=== PATIENT | male | born 1940 | race Caucasian/White ===

== ENCOUNTER 2016-11-30 20:54 | Inpatient (IN) | payer BC ==
--- NOTE | ~2016-11-30 | DS ---
Discharge Summary [facility] [address] [place]. [address] NAME: REGGIE PINEDA : 39 STATUS : DIS IN PAT#: [id number] AGE: 76 ADM/REG DATE : 11/30/16 MR#: [id number] REPORT SERV DATE: 12/04/16 DICTATED BY: ENRICO BANEGAS DATE: 12/03/16 REPORT STATUS : Draft TRANSCRIBED BY: MODBrenden DATE: 12/03/16 ADMISSION DATE: 11/30/2016 DISCHARGE DATE: 12/03/2016 CONDITION ON DISCHARGE: Stable. DISPOSITION: Discharged to home. Advise on discharge is for the patient to follow up with PCP in the next one to two weeks and with his assistant executive housekeeper next as scheduled. His assistant executive housekeeper is Dr. Lujan. DIAGNOSES ON DISCHARGE: 1. Left second toe osteomyelitis, status post amputation of the left second toe. 2. Right second toe osteomyelitis - status post amputation of the right second toe also. 3. The patient does not require antibiotics beyond 10 days at this time, and hence, he will be sent home on p.o. Augmentin 875 mg p.o. b.i.d. for this. Other diagnoses that are chronic and stable in this patient include: 1. Diabetes mellitus which is chronic but well controlled because his hemoglobin A1c came back at 6.7 reflecting well-controlled diabetes mellitus with his current insulin regimen. 2. History of multiple diabetic foot ulcers and osteomyelitis of the toes secondary to partly diabetes and also partly due to hammertoe deformity that the patient has in both feet. 3. Benign prostatic hypertrophy with urinary retention which is not a problem at this time. 4. Chronic atrial fibrillation with ventricular response, rate controlled. For this, the patient has been started on Eliquis 5 mg p.o. b.i.d., and a 30-day supply of Eliquis 5 mg p.o. b.i.d. has been given to the patient. 5. Rheumatoid arthritis which is stable and the patient continues to be on Plaquenil, methotrexate, and prednisone. 6. Neuropathy in both feet which are stable at this time. 7. Obstructive sleep apnea and obesity/hypoventilation syndrome for which the patient is on CPAP. 8. History of left chronic deep venous thrombosis for which the patient now is on Eliquis. 9. Chronic kidney disease, stage 3, with baseline creatinine around 1.5 to 1.7 which is stable. 10.History of peripheral arterial disease which is stable at this time. BRIEF HOSPITAL COURSE: The patient is a very pleasant 76-year-old white male patient who was admitted essentially with osteomyelitis of the left second toe only. There was really minimal cellulitis upon admission. However, he was admitted for IV antibiotics and scheduled for amputation of the left second toe and also the right second toe for chronic osteomyelitis. He was begun on IV vancomycin and IV Zosyn. Wound culture came back with minimal growth of Staphylococcus, otherwise, no other growth. Dr. Lujan, his assistant executive housekeeper, performed left second toe amputation and also right second toe amputation. Discharge Summary [address] [address] NAME: REGGIE PINEDA : 39 STATUS : DIS IN PAT#: [id number] AGE: 76 ADM/REG DATE : 11/30/16 MR#: [id number] REPORT SERV DATE: 12/04/16 DICTATED BY: ENRICO BANEGAS DATE: 12/03/16 REPORT STATUS : Draft TRANSCRIBED BY: TU DATE: 12/03/16 DISCHARGE MEDICATIONS: The patient was continued on all of his home medications. He improved very well after this and did extremely well postoperatively. Hence, he is being sent home on 12/03/2016 with the following two new medications: 1. Augmentin 875 mg p.o. b.i.d. for 10 more days. 2. Eliquis 5 mg p.o. b.i.d., a 30-day supply has been given to the patient. The patient will be continued on anticoagulation per primary care physician after this. The patient states that he already has enough insulin and other medications at home and does not require any more prescriptions for this. Hence, his home medications will be resumed, and he has been advised to continue taking his home medications which include the followin. Demodex 100 mg once a day. 2. Potassium chloride 10 mEq p.o. b.i.d. 3. Metaglip 5/500 one p.o. b.i.d. 4. Neurontin 900 mg p.o. t.i.d. 5. Methotrexate 15 mg p.o. weekly. 6. Lotensin 40 mg once a day. 7. Amlodipine 5 mg once a day. 8. Prednisone 5 mg once a day. 9. Hydrochlorothiazide 25 mg once a day. 10.Plaquenil 200 mg p.o. once a day. 11.Folic acid 1 mg once a day. 12.Aspirin 81 mg once a day. 13.Toujeo or insulin glargine 20 units at bedtime. 14.Flonase nasal spray p.r.n. 15.Mucinex 1200 mg p.o. every morning and 600 mg p.o. twice a day p.r.n. 16.Trulicity 0.75 mg subcutaneously once a week. LABORATORY AND DIAGNOSTIC DATA: His most recent labs upon discharge are as follows: On 12/03/2016, the patient had a CBC count that shows a WBC of 8.8, hemoglobin 11, hematocrit 32, and platelet count of 173. His electrolyte profile shows sodium of 142, potassium of 4.9, BUN is 21, and creatinine is 1.0. His hemoglobin A1c has come back at 6.4, which shows well-controlled diabetes mellitus. His wound culture has come back with extremely sparse growth of MRSA at this time; but however, as the patient had minimal signs of cellulitis, I do not think this requires any treatment beyond the Augmentin that the patient has been prescribed. The patient also had a 2D echocardiogram done at this time, which shows a left ventricular ejection fraction of 50% and mild diastolic dysfunction. Other significant radiological studies that the patient had during this admission is an MRI of the left foot that shows that the patient has osteomyelitis of the second proximal phalanx of the left side and also essentially tenosynovitis of the peroneus longus tendon. Other than this, no other pockets of infection. This has also been taken care of as the patient has already undergone a left second toe amputation now. Hence, he is being sent home in stable condition and I have spent about 40 minutes in coordinating discharge care of this patient including [id number] encounter and summarizing this discharge. Discharge Summary [address] [place]. [address] NAME: REGGIE PINEDA : 39 STATUS : DIS IN PAT#: [id number] AGE: 76 ADM/REG DATE : 11/30/16 MR#: [id number] REPORT SERV DATE: 12/04/16 DICTATED BY: ENRICO BANEGAS DATE: 12/03/16 REPORT STATUS : Draft TRANSCRIBED BY: MODL DATE: 12/03/16 MIYA/TU Enrico Banegas M.D. / [id number] CC: Ross Greene M.D.
--- NOTE | ~2016-11-30 | OP ---
Record Of Operation [facility] [address] [place]. [address] NAME: REGGIE PINEDA : 39 STATUS : ADM IN PAT#: [id number] AGE: 76 ADM/REG DATE : 11/30/16 MR#: [id number] REPORT SERV DATE: 12/02/16 DICTATED BY: DERICK LITTLE DATE: 12/02/16 REPORT STATUS : Draft TRANSCRIBED BY: MODL DATE: 12/02/16 DATE OF PROCEDURE: 12/02/2016 SURGEON: Derick Little DPM PRACTICE PROFESSIONAL: None. PREOPERATIVE DIAGNOSES: 1. Diabetic foot ulcer, left foot. 2. Osteomyelitis and hammertoe deformity, bilateral second toe. POSTOPERATIVE DIAGNOSES: 1. Diabetic foot ulcer, left foot. 2. Osteomyelitis and hammertoe deformity, bilateral second toe. PROCEDURE: 1. Right second toe amputation. 2. Left second toe amputation. 3. Left fourth wound excisional debridement under 20 square centimeters. ANESTHESIA: MAC. HEMOSTASIS: None. ESTIMATED BLOOD LOSS: 10 mL. MATERIALS UTILIZED: 3-0 Prolene. INJECTABLES: None. SPECIMENS: Bone and soft tissues sent off for microbiology as well as a histopathology. COMPLICATION: None. CONDITION: Stable. JUSTIFICATION FOR PROCEDURE: The patient is a very pleasant 76-year-old male well known to my practice with multiple comorbidities and a significant history of diabetic foot ulcerations and complications. The patient presented to my office with an ulceration to his left second toe with the bone sticking out of the wound. The patient also had an ulcer to his left fourth toe and they understand all the risks of the condition. The patient is fully neuropathic and constantly bumps his feet into objects, not knowing when he has caused the wound or ulceration. The patient's asks if we can also amputate and address the right second toe when we are in surgery due to multiple ulcerations to that digit due to his significant hammertoe deformity to that digit. The patient understands all the risks, benefits, alternatives, and the postoperative course in detail. The patient understands Record Of Operation [place] [id number] [place]. [address] NAME: REGGIE PINEDA : 39 STATUS : ADM IN PAT#: [id number] AGE: 76 ADM/REG DATE : 11/30/16 MR#: [id number] REPORT SERV DATE: 12/02/16 DICTATED BY: BRIGIDSEANDERICK DATE: 12/02/16 REPORT STATUS : Draft TRANSCRIBED BY: TU DATE: 12/02/16 that due to his multiple comorbidities and peripheral vascular disease, that he is at higher risk for wound healing. The patient and his fully understand this, and they would like to move on forward with surgery. The patient understands as in all surgeries, there are no guarantees, none of which have been given, stated, or implied. DESCRIPTION OF PROCEDURE AND FINDINGS: The patient was wheeled into the operating room and placed on the operating room table in the supine position, at which time anesthesia was administered by Anesthesia Services, and bilateral lower extremities were prepped, scrubbed, and draped in the usual sterile fashion. At this time, attention was directed to the left foot where a skin marker was utilized to plan out a racket-type incision about the second toe. Next, a 15-blade was utilized to make an incision down to bone and second toe was disarticulated to metatarsophalangeal joint. This is passed off to the back table. The surgical manager at this time utilizes a rongeur to remove some bone, to be sent off for microbiology and the remaining second toe is sent off for histopathology. Next, this wound is copiously irrigated. It is to be noted there was no tracking distally. The wound appeared healthy with healthy bleeding. The remaining bone at the second metatarsal is noted to be hard and healthy. Next, with the wound irrigated, 3-0 Prolene was utilized to reapproximate the skin in a horizontal and simple suture fashion. There was no tension. At this time, attention was directed to the left fourth toe where predebridement measurements were 0.8 x 0.6. A 15-blade was utilized to perform excisional debridement down to the subcutaneous layer removing all devitalized and nonviable tissue. It should be noted that there was no bone visible at this time, the base was nice and healthy granular subcutaneous tissue. Next, postdebridement measures were 1 cm x 0.8 cm. The wound was copiously irrigated and at this time Adaptic with soaked in Betadine was applied over both incision sites followed by copious Kerlix and gauze to cover the wounds, and an FELTON bandage with very light compression. At this time, attention was directed to the right second toe, where a racket-type incision was made about the right second toe and utilized a 15-blade, and incision was made down to bone. Next, the right second toe was disarticulated at the metatarsophalangeal joint, passed off the back table to be sent off for histopathology. The wound was copiously irrigated and 3-0 Prolene was utilized to reapproximate the cutaneous layer in a simple suture in a horizontal mattress fashion. There is noted to be no tension at this site. Next, Betadine-soaked Adaptic followed by gauze and Kerlix were utilized to dress the right foot and Felton bandage like compression. The patient tolerated the procedure and anesthesia well, left the operating room with vital signs stable and neurovascular status intact to bilateral lower extremities. The patient will be readmitted to the floor under the surface of Dr. Morin. The patient has been instructed to keep the dressing clean, dry, and intact and remain weightbearing as tolerated in postoperative shoes, but has also been instructed to keep his activities minimal with elevation of bilateral lower extremities. The patient will follow up with me in 3 to 5 days unless there are any signs of infection, which they have been instructed on. They should call me immediately or report to emergency room if any of these signs or symptoms should Record Of Operation [address] [address] NAME: REGGIE PINEDA : 38 STATUS : ADM IN [facility]#: [id number] AGE: 76 ADM/REG DATE : 11/30/16 MR#: [id number] REPORT SERV DATE: 12/02/16 DICTATED BY: DERICK LITTLE DATE: 12/02/16 REPORT STATUS : Draft TRANSCRIBED BY: TU DATE: 12/02/16 occur. KATJA/TU Derick Little DPM / [id number] CC: Ross Greene M.D.
--- NOTE | ~2016-11-30 | HP ---
History And Physical [place] [address] [facility] [place]. [address] NAME: REGGIE PINEDA : 39 STATUS : ADM IN [facility]#: [id number] AGE: 76 ADM/REG DATE : 11/30/16 MR#: [id number] REPORT SERV DATE: 12/01/16 DICTATED BY: EUGENIA CONTI DATE: 11/30/16 REPORT STATUS : Draft TRANSCRIBED BY: MODL DATE: 11/30/16 DATE OF ADMISSION: 11/30/2016 CHIEF COMPLAINT: A 76-year-old male presenting with progressive left foot toe ulcer. HISTORY OF PRESENT ILLNESS: The patient's history was obtained through careful interview with the patient, , and daughter coupled with [facility] of [facility] and [facility] medical records. The patient about three weeks ago began to develop an ulcer over the second toe on his left foot. It has progressed over the last several weeks despite attempts to care for it, and now unfortunately it has begun to expose an ulcer all the way to the bone. He has no pain associated with it because of severe neuropathy and has no sensation at all in his feet. There is also a complaint about deformity of his right second toe with a hammertoe deformity despite previous surgical correction and now increasing superficial ulcer with recurrent unintentional injuries to it. He does have chronic rheumatoid arthritis and at times it is poorly controlled with stiffening and discomfort in his hands and wrists mostly, about a 6 out of 10 severity, that comes and goes, particularly bad in the morning. No fevers or chills. The patient claims his diabetes is under excellent control with most blood sugars less than 200. No shortness of breath. No chest pain. No cough. No back pain. REVIEW OF SYSTEMS: Otherwise, a 14-point review of systems was obtained and was negative. PAST MEDICAL HISTORY: 1. Diabetes, hemoglobin A1c of 7.5, 08/2016. 2. Leg cellulitis, diabetic foot ulcer infections, and osteomyelitis of lower extremities. 3. Pseudomonas and Stenotrophomonas. 4. Benign prostatic hypertrophy with urinary retention. 5. Enterococcus. 6. Atrial fibrillation/atrial flutter but has never seen a pastrycook. 7. Rheumatoid arthritis, on chronic Plaquenil, steroids, methotrexate. 8. Neuropathy. 9. Obstructive sleep apnea, on CPAP. 10.Left chronic DVT. 11.Nephrolithiasis. 12.Pneumonia. 13.Peripheral arterial disease with surgery of the legs. 14.Chronic kidney disease, stage III. Baseline creatinine of 1.5 to 1.7. 15.Stroke by MRI. History And Physical [address] [address] NAME: REGGIE PINEDA : 39 STATUS : ADM IN PAT#: [id number] AGE: 76 ADM/REG DATE : 11/30/16 MR#: [id number] REPORT SERV DATE: 12/01/16 DICTATED BY: EUGENIA CONTI DATE: 11/30/16 REPORT STATUS : Draft TRANSCRIBED BY: TU DATE: 11/30/16 PAST SURGICAL HISTORY: 1. Partial foot and toe amputations. 2. Some kind of bypass surgery of the gut in 1978 with reversal in 1980. 3. Right shoulder melanoma removal, 2004. 4. Bilateral knee surgeries. 5. Bilateral shoulder surgeries. 6. Left hip replacement. 7. Adhesiolysis. 8. Cholecystectomy. 9. An arthrectomy of the leg artery by Dr. Foster. ALLERGIES: NO KNOWN DRUG ALLERGIES. SOCIAL HISTORY: Quit smoking more than 30 years ago. He is . Disabled. 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 At one point, he had a collection of over a 1000 knives but has had to sell many of them and now has about 200 or more. He has a supportive son and daughter who live locally. Drinks occasional alcohol. FAMILY HISTORY: Father with stroke. Mother with pancreatic cancer. Had a daughter pass away from multiple sclerosis. A strong family history of diabetes. CURRENT MEDICATIONS: Include Norvasc 5 mg p.o. daily, aspirin 325 mg p.o. daily, Lotensin 40 mg p.o. daily, Trulicity 0.75 mg subcutaneous on , Flonase, folic acid, Neurontin 900 mg p.o. t.i.d., glipizide/metformin 5/500 p.o. b.i.d., Mucinex p.r.n., hydrochlorothiazide 25 mg p.o. daily, Plaquenil 200 mg p.o. daily, Toujeo 20 mg p.o. daily, methotrexate on Sundays, potassium 10 mEq p.o. b.i.d., prednisone 5 mg p.o. daily, and Demadex 100 mg p.o. daily. PHYSICAL EXAMINATION: VITAL SIGNS: Temperature 97.9, pulse 60, blood pressure 136/62, respiratory rate 16, and O2 saturation 98% on room air. GENERAL: A pleasant cooperative male. No evidence of distress at this time. HEENT: Pupils equal, round, and reactive to light. No conjunctival pallor. No scleral icterus. Nares are patent. Oropharynx is clear of obstruction. Dry mucous membranes. NECK: Trachea midline. No thyromegaly. LYMPH: No cervical lymphadenopathy. No supraclavicular lymphadenopathy. No inguinal lymphadenopathy. RESPIRATORY: Clear to auscultation at bases. No wheezes, rales, or rhonchi. Normal respiratory effort. CARDIOVASCULAR: Regular rate and rhythm. No murmurs, rubs, or gallops. No current extremity edema is appreciated. ABDOMEN: Soft, nontender, and nondistended. Normal bowel sounds auscultated throughout. No organomegaly. DERMATOLOGICAL: Warm and dry extremities. No pallor. No cyanosis. The patient has ulceration and purulent drainage from his left second toe. History And Physical [address] [address] NAME: REGGIE PINEDA : 38 STATUS : ADM IN [facility]#: [id number] AGE: 76 ADM/REG DATE : 11/30/16 MR#: [id number] REPORT SERV DATE: 12/01/16 DICTATED BY: EUGENIA CONTI DATE: 11/30/16 REPORT STATUS : Draft TRANSCRIBED BY: TU DATE: 11/30/16 PSYCHIATRIC: Normal affect. Good mood. Alert and oriented x3. LABORATORY DATA: White blood cell count 7.8, hemoglobin 12, hematocrit 35, MCV 103.6, platelets 202, sodium 140, potassium 5.7, chloride 108, bicarb 25, BUN 46, creatinine 0.47, and glucose 131. Liver enzymes within normal limits. ASSESSMENT AND PLAN: 1. Left second toe osteomyelitis and infected diabetic ulcer. I obtained a wound culture at the bedside. We will place on IV vancomycin, IV Zosyn. Noted history of Pseudomonas and Stenotrophomonas. Check an MRI to define extent. Consult Dr. Lujan, tin plater. 2. Diabetes, hemoglobin A1c of 7.5, 02/2017. Placed on home medications and sliding scale insulin. 3. Rheumatoid arthritis, on methotrexate, Plaquenil, and chronic steroids. 4. Obstructive sleep apnea, on CPAP. 5. Chronic atrial fibrillation. Check telemetry. Patient noncompliant with anticoagulation. 6. Chronic kidney disease, stage III. KPL/MODL Eugenia Conti M.D. / [id number] CC: Ross Greene M.D.
[~2016-11-30 20:54] MED LIST: ADVAIR250 INH; ALLEGRA180 PO; AMB10 PO; ANDROGEL5 TOP; ASA5GR PO; ASAB PO; BACDS PO; BYETTA10 SC; DEMA100 PO; FLONASE NAS; FLORASTOR250 MG PO; FOLIC PO; GLUCOV5 PO; HCTZ25B PO; HYDROCHLOROT25 MG PO; K-TABS10 MEQ PO; KLOR-CON 1010 MEQ PO; L20 PO; L40 PO; LEVAQUIN750 MG PO; LODOSYN; LOTE40 PO; LOTREL1 CA2 PO; METAGLIP1 TA2 PO; MTX2.5 PO; MUCINEX600 MG PO; MUCUS RELIEF OR; Mucinex; NASACORTAQ NAS; NEUR600 PO; NEXIUM40 PO; NIACIN TR1000 MG PO; NORV5 PO; P5 PO; PCET PO; PLAQ200B PO; PLAVIX PO; RELA5 PO; SIN25 PO; SLO-NIACIN500 MG PO; SYSTAN1 OPH; SYSTANE OPH; TEARS NATURA OPH; TOUJEO PO; TRULICITY0.75 MG/0. SQ; TYLENOL PM PO; VENTOLIN HFA INH; VICTOZA SQ; VITC500 PO; Victoza SQ; [UNRECOGNIZED DRUG - OTHER] PO
[2016-11-30 21:33] LABS: BASOPHILS 0.3 %; BASOPHILS ABSOLUTE 0.02 10/3/uL (0.0-0.16); EOSINOPHILS ABSOLUTE 0.08 10/3/uL (0.0-0.53); ER CBC TAT 0 Hrs 05 Mins; HEMATOCRIT 34.9 % (40.0-51.0); HEMOGLOBIN 12.1 g/dL (13.6-17.8); IMMATURE GRANULOCYTES 0.1 %; IMMATURE GRANULOCYTES ABSOLUTE 0.01 10/3/uL (0.0-0.11); LYMPHOCYTES 20.9 %; LYMPHOCYTES ABSOLUTE 1.63 10/3/uL (0.67-4.30); MANUAL DIFF NO %; MEAN CORPUS HGB CONC 34.7 g/dL (32.0-36.0); MEAN CORPUSCULAR HEMOGLOB 35.9 pg (26.0-34.0); MEAN CORPUSCULAR VOLUME 103.6 fL (80-100); MEAN PLATELET VOLUME 10.4 fL (9.2-13.0); MONOCYTES 6.5 %; MONOCYTES ABSOLUTE 0.51 10/3/uL (0.21-1.20); NEUTROPHILS 71.2 %; NEUTROPHILS ABSOLUTE 5.54 10/3/uL (2.02-8.40); PLATELET COUNT 202 10/3/uL (150-400); RED CELL COUNT 3.37 10/6/uL (4.7-6.1); WHITE BLOOD CELLS 7.8 10/3/uL (4.5-10.5)
[2016-11-30 21:49] LABS: A/G RATIO 1.2 (0.7-1.9); ALBUMIN 3.8 G/DL (3.5-5.0); ALKALINE PHOSPHATASE 83 U/L (45-117); CALCIUM, SERUM 9.1 MG/DL (8.5-10.4); CHLORIDE, SERUM 108 MMOL/L (96-112); CO2 (CARBON DIOXIDE) 25 MMOL/L (24-34); CREATININE 1.47 MG/DL (0.70-1.30); GFR AFRICAN AMERICAN 53 ML/MIN (>=60); GFR NON AFRICAN AMERICAN 45 ML/MIN (>=60); GLOBULIN 3.3 G/DL (2.5-4.1); POTASSIUM, SERUM 5.7 MMOL/L (3.5-5.3); SGOT(AST) 14 U/L (5-40); SGPT(ALT) 25 U/L (5-65); SODIUM, SERUM 140 MMOL/L (135-148); TOTAL BILIRUBIN 0.5 MG/DL (0-1.2); TOTAL PROTEIN 7.1 G/DL (6.0-8.5)
[2016-11-30 21:51] LABS: BUN (BLOOD UREA NITROGEN) 46 MG/DL (6-23); GLUCOSE, SERUM 131 MG/DL (60-99)
[2016-12-01 06:43] LABS: BASOPHILS 0.7 %; BASOPHILS ABSOLUTE 0.04 10/3/uL (0.0-0.16); EOSINOPHILS 1.9 %; EOSINOPHILS ABSOLUTE 0.11 10/3/uL (0.0-0.53); HEMOGLOBIN 10.5 g/dL (13.6-17.8); IMMATURE GRANULOCYTES 0.2 %; IMMATURE GRANULOCYTES ABSOLUTE 0.01 10/3/uL (0.0-0.11); LYMPHOCYTES 34.2 %; LYMPHOCYTES ABSOLUTE 2.02 10/3/uL (0.67-4.30); MEAN CORPUSCULAR HEMOGLOB 35.4 pg (26.0-34.0); MEAN PLATELET VOLUME 10.5 fL (9.2-13.0); MONOCYTES ABSOLUTE 0.53 10/3/uL (0.21-1.20); NEUTROPHILS ABSOLUTE 3.19 10/3/uL (2.02-8.40); PLATELET COUNT 193 10/3/uL (150-400); RBC DISTRIBUTION WIDTH 15.8 % (12.0-16.0); RED CELL COUNT 2.97 10/6/uL (4.7-6.1); WHITE BLOOD CELLS 5.9 10/3/uL (4.5-10.5)
[2016-12-01 06:45] LABS: HEMATOCRIT 30.9 % (40.0-51.0); MANUAL DIFF NO %
[2016-12-01 06:48] LABS: INTERNATIONAL NORMAL RATI 1.2 UNITS (-)
[2016-12-01 06:50] LABS: PROTIME (NOT ORD) 15.1 SEC (12.0-14.5)
[2016-12-01 06:53] LABS: PARTIAL THROMBO TIME 29.2 SEC (22.5-37.2)
[2016-12-01 07:07] LABS: ALBUMIN 3.3 G/DL (3.5-5.0); CALCIUM, SERUM 9.2 MG/DL (8.5-10.4); CHLORIDE, SERUM 109 MMOL/L (96-112); CO2 (CARBON DIOXIDE) 26 MMOL/L (24-34); CREATININE 1.32 MG/DL (0.70-1.30); GFR AFRICAN AMERICAN 60 ML/MIN (>=60); GFR NON AFRICAN AMERICAN 52 ML/MIN (>=60); POTASSIUM, SERUM 4.9 MMOL/L (3.5-5.3); SGOT(AST) 12 U/L (5-40); SGPT(ALT) 20 U/L (5-65); SODIUM, SERUM 144 MMOL/L (135-148); TOTAL BILIRUBIN 0.7 MG/DL (0-1.2); TOTAL PROTEIN 5.9 G/DL (6.0-8.5)
[2016-12-01 07:08] LABS: A/G RATIO 1.3 (0.7-1.9); ALKALINE PHOSPHATASE 65 U/L (45-117); BUN (BLOOD UREA NITROGEN) 40 MG/DL (6-23); GLOBULIN 2.6 G/DL (2.5-4.1); GLUCOSE, SERUM 80 MG/DL (60-99)
[2016-12-02 06:56] LABS: BASOPHILS 0.3 %; BASOPHILS ABSOLUTE 0.02 10/3/uL (0.0-0.16); EOSINOPHILS 2.1 %; EOSINOPHILS ABSOLUTE 0.15 10/3/uL (0.0-0.53); HEMATOCRIT 31.1 % (40.0-51.0); HEMOGLOBIN 10.9 g/dL (13.6-17.8); IMMATURE GRANULOCYTES 0.3 %; IMMATURE GRANULOCYTES ABSOLUTE 0.02 10/3/uL (0.0-0.11); LYMPHOCYTES 29.2 %; LYMPHOCYTES ABSOLUTE 2.07 10/3/uL (0.67-4.30); MEAN CORPUSCULAR VOLUME 102.6 fL (80-100); MEAN PLATELET VOLUME 10.6 fL (9.2-13.0); MONOCYTES 7.6 %; MONOCYTES ABSOLUTE 0.54 10/3/uL (0.21-1.20); NEUTROPHILS 60.5 %; PLATELET COUNT 193 10/3/uL (150-400); RBC DISTRIBUTION WIDTH 15.8 % (12.0-16.0); RED CELL COUNT 3.03 10/6/uL (4.7-6.1); WHITE BLOOD CELLS 7.1 10/3/uL (4.5-10.5)
[2016-12-02 06:57] LABS: MANUAL DIFF NO %
[2016-12-02 07:00] LABS: INTERNATIONAL NORMAL RATI 1.2 UNITS (-); PROTIME (NOT ORD) 14.9 SEC (12.0-14.5)
[2016-12-02 07:07] LABS: BUN (BLOOD UREA NITROGEN) 29 MG/DL (6-23); CALCIUM, SERUM 8.7 MG/DL (8.5-10.4); CHLORIDE, SERUM 111 MMOL/L (96-112); CO2 (CARBON DIOXIDE) 26 MMOL/L (24-34); GFR AFRICAN AMERICAN 75 ML/MIN (>=60); GFR NON AFRICAN AMERICAN 64 ML/MIN (>=60); GLUCOSE, SERUM 76 MG/DL (60-99); POTASSIUM, SERUM 4.8 MMOL/L (3.5-5.3); SODIUM, SERUM 143 MMOL/L (135-148)
[2016-12-03 06:58] LABS: BASOPHILS 0.6 %; BASOPHILS ABSOLUTE 0.05 10/3/uL (0.0-0.16); EOSINOPHILS 1.5 %; EOSINOPHILS ABSOLUTE 0.13 10/3/uL (0.0-0.53); IMMATURE GRANULOCYTES 0.6 %; IMMATURE GRANULOCYTES ABSOLUTE 0.05 10/3/uL (0.0-0.11); LYMPHOCYTES ABSOLUTE 1.67 10/3/uL (0.67-4.30); MEAN CORPUS HGB CONC 34.4 g/dL (32.0-36.0); MEAN CORPUSCULAR HEMOGLOB 35.3 pg (26.0-34.0); MEAN CORPUSCULAR VOLUME 102.6 fL (80-100); MEAN PLATELET VOLUME 10.6 fL (9.2-13.0); MONOCYTES 10.8 %; MONOCYTES ABSOLUTE 0.95 10/3/uL (0.21-1.20); NEUTROPHILS 67.5 %; NEUTROPHILS ABSOLUTE 5.95 10/3/uL (2.02-8.40); PLATELET COUNT 173 10/3/uL (150-400); RBC DISTRIBUTION WIDTH 15.9 % (12.0-16.0); RED CELL COUNT 3.12 10/6/uL (4.7-6.1); WHITE BLOOD CELLS 8.8 10/3/uL (4.5-10.5)
[2016-12-03 07:04] LABS: MANUAL DIFF NO %
[2016-12-03 07:15] LABS: CHLORIDE, SERUM 109 MMOL/L (96-112); CO2 (CARBON DIOXIDE) 23 MMOL/L (24-34); CREATININE 1.05 MG/DL (0.70-1.30); GFR AFRICAN AMERICAN 79 ML/MIN (>=60); GFR NON AFRICAN AMERICAN 68 ML/MIN (>=60); POTASSIUM, SERUM 4.9 MMOL/L (3.5-5.3); SODIUM, SERUM 142 MMOL/L (135-148)
[2016-12-03 07:19] LABS: BUN (BLOOD UREA NITROGEN) 21 MG/DL (6-23); GLUCOSE, SERUM 97 MG/DL (60-99)
[2016-12-03] MEDS ORDERED: AUG875 PO (12:05)
[2016-12-03] MEDS ORDERED: ELIQUIS 5 MG TAB5 MG PO (12:06)
== END 2016-12-03 13:29 | disposition home or self-care (01) | DRG 617 ==
LOC: ER 20:54 → 6NO 21:02
PROVIDERS: Emergency Medicine; Hospitalist; Podiatrist
PROC: 0Y6S0Z0 Detachment at Left 2nd Toe, Complete, Open Approach (ICD-10-PCS; 2016-12-02)
PROC: 0JBR0ZZ Excision of Left Foot Subcutaneous Tissue and Fascia, Open Approach (ICD-10-PCS; 2016-12-02)
PROC: 0Y6R0Z0 Detachment at Right 2nd Toe, Complete, Open Approach (ICD-10-PCS; principal; 2016-12-02 10:45)
DX: E11.69 Type 2 diabetes mellitus with other specified complication (principal); E66.2 Morbid (severe) obesity with alveolar hypoventilation; E11.40 Type 2 diabetes mellitus with diabetic neuropathy, unspecified; I48.2 Chronic atrial fibrillation; Z68.41 Body mass index [BMI] 40.0-44.9, adult; M86.672 Other chronic osteomyelitis, left ankle and foot; E11.621 Type 2 diabetes mellitus with foot ulcer; L97.529 Non-pressure chronic ulcer of other part of left foot with unspecified severity; M20.42 Other hammer toe(s) (acquired), left foot; M20.41 Other hammer toe(s) (acquired), right foot; N40.1 Benign prostatic hyperplasia with lower urinary tract symptoms; R33.8 Other retention of urine; M06.9 Rheumatoid arthritis, unspecified; I73.9 Peripheral vascular disease, unspecified; M65.9 Synovitis and tenosynovitis, unspecified; Z79.52 Long term (current) use of systemic steroids; Z79.899 Other long term (current) drug therapy; Z86.718 Personal history of other venous thrombosis and embolism; Z98.84 Bariatric surgery status; Z87.891 Personal history of nicotine dependence; Z79.02 Long term (current) use of antithrombotics/antiplatelets
CPT/HCPCS: 73630-50; 73630-LT; 73718-LT; 80048; 80053; 82962; 83036; 83735; 84443; 85025; 85610; 85730; 87070; 87075; 87077; 87186; 87205; 88305; 88311; 93005; 99284; A9270-GY; C8929; J2543; J2795; J3010; J3370; Q9957